=== PATIENT | male | born 1975 | race Caucasian/White ===

== ENCOUNTER → 2017-05-22 | Outpatient (CLI) | payer MEDICARE, OTHER ==
--- NOTE | 2017-05-22 10:51 | MR ---
EXAMINATION TYPE: MR brain wo con DATE OF EXAM: 05/22/2017 COMPARISON: NONE HISTORY: Headaches TECHNIQUE: Multiplanar, multisequence images of the brain and brainstem is performed without intravenous contras t. FINDINGS: Diffusion weighted images demonstrate no evidence of a recent infarct or other diffusion ab normality. There is no extra-axial fluid collection. Multiple subcentimeter subcortical T2/FLAIR hyp erintense foci are seen within the white matter, predominating within the frontal lobe as well as a s dwight lesion in the external capsule. The ventricular system and cisternal spaces are normal in size and appearance. The brain volume is age appropriate. Midline structures demonstrate normal morphology. The craniocervical junction appears within normal limits. Minimal mucosal thickening is seen within the ethmoid sinuses. Frontal sinuses, sphenoid sinu s and mastoid air cells on the left are well aerated. Scant mucosal thickening is seen within the max illary sinuses and small amount of fluid is present within the right mastoid air cells. IMPRESSION: 1. Scattered punctate nonspecific white matter changes. These are atypical in distribution for demyel inating process such as MS, although demyelinating process is possible. Lesions predominating within the frontal region can also be seen in migraines. This could also relate to early sequela of microang iopathy if the patient has hypertension or vascular disease. 2. Mild paranasal sinus disease and small amount of fluid within the right mastoid air cells that jay uld be correlated with clinical symptoms to determine potential right mastoiditis.
== END | disposition home or self-care (01) ==
LOC: RADMRIMAIN 07:55
PROVIDERS: ATTEND Psychiatry & Neurology Pain Medicine
DX: G93.89 Other specified disorders of brain (principal); R90.82 White matter disease, unspecified
CPT/HCPCS: 70551

== ENCOUNTER → 2017-11-06 | Outpatient (CLI) | payer MEDICARE ==
[2017-11-06 21:50] LABS: Total Protein,CSF 43 mg/dL (12-60)
[2017-11-06 22:38] LABS: Appearance,CSF Clear; CSF Tube Number 4; Nucleated Cells, CSF 3 u/L (0-5); Red Blood Cell,CSF 0 u/L (0-10)
[2017-11-09 12:22] LABS: IgG - CSF 1.5 mg/dL (0.0 - 3.4); IgG/Albumin Index (CSF) 0.54 (0.00 - 0.77); Immunoglobulin G 888 mg/dL (700 - 1600)
== END | disposition home or self-care (01) ==
LOC: LABWHC1 14:36
PROVIDERS: ATTEND Psychiatry & Neurology Pain Medicine
DX: R90.82 White matter disease, unspecified (principal); R53.83 Other fatigue
CPT/HCPCS: 36415; 82040; 82042; 82784; 83873; 83916; 84157; 87476; 88108; 89050

== ENCOUNTER → 2018-07-23 | Outpatient (CLI) | payer MEDICARE, OTHER ==
--- NOTE | 2018-07-23 12:11 | ECHOF ---
Referral Reason:R07.9 CHEST PAIN R06.00 dyspnea MEASUREMENTS -------- HEIGHT: 175.3 cm WEIGHT: 64.4 kg BP: RVIDd: 2.4 cm (< 3.3) IVSd: 0.9 cm (0.6 - 1.1) LVIDd: 4.4 cm (3.9 - 5.3) LVPWd: 0.9 cm (0.6 - 1.1) IVSs: 1.2 cm LVIDs: 3.3 cm LVPWs: 1.0 cm LA Diam: 2.4 cm (2.7 - 3.8) LAESV Index (A-L): 14.88 ml/m Ao Diam: 3.2 cm (2.0 - 3.7) AV Cusp: 2.2 cm (1.5 - 2.6) LA Diam: 2.9 cm (2.7 - 3.8) MV EXCURSION: 25.510 mm (> 18.000) MV EF SLOPE: 137 mm/s (70 - 150) EPSS: 0.1 cm MV E Xavi: 0.93 m/s MV DecT: 216 ms MV A Xavi: 0.58 m/s MV E/A Ratio: 1.59 RAP: 5.00 mmHg RVSP: 16.65 mmHg FINDINGS -------- Sinus rhythm. This was a technically good study. LV size, wall thickness and systolic function are normal, with an EF greater than 55%. The left ventura tricular size is normal. The right ventricle is normal in size. The left atrial size is normal. The aortic valve is trileaflet, and appears structurally normal. No aortic stenosis or regurgitation. Mild mitral regurgitation is present. Mild tricuspid regurgitation present. There is no evidence of pulmonary hypertension. The right v entricular systolic pressure, as measured by Doppler, is 16.65mmHg. There is no pulmonic regurgitation present. The aortic root size is normal. There is no pericardial effusion. CONCLUSIONS -------- 1. LV size, wall thickness and systolic function are normal, with an EF greater than 55%. 2. The left ventricular size is normal. 3. The right ventricle is normal in size. 4. The left atrial size is normal. 5. The aortic valve is trileaflet, and appears structurally normal. No aortic stenosis or regurgitati on. 6. Mild mitral regurgitation is present. 7. Mild tricuspid regurgitation present. 8. There is no evidence of pulmonary hypertension. 9. The right ventricular systolic pressure, as measured by Doppler, is 16.65mmHg. 10. There is no pulmonic regurgitation present. 11. The aortic root size is normal. 12. There is no pericardial effusion. ELECTRIC SCOOP OPERATOR: Arely Gage RDCS
== END | disposition home or self-care (01) ==
LOC: RADECHMAIN 11:17
PROVIDERS: ATTEND Physician Assistant Medical
DX: I08.1 Rheumatic disorders of both mitral and tricuspid valves (principal); I49.9 Cardiac arrhythmia, unspecified; R00.1 Bradycardia, unspecified; R00.0 Tachycardia, unspecified
CPT/HCPCS: 93225; 93226; 93306